=== PATIENT | male | born 1985 | race Caucasian/White ===

== ENCOUNTER → 2020-02-29 15:36 | Outpatient (CLI) | payer OTHER, SELFPAY ==
--- NOTE | 2020-02-29 15:40 | CT_ITS ---
STUDY: CT FACIAL BONES WITHOUT CONTRAST REASON FOR EXAM: Male, 34 years old. PT STATED CHRONIC SINUSITIS, EMRE NORY RADIATION DOSAGE (If Supplied By Facility): CTDIvol = ( 33.06 ) mGy, DLP = ( 858.64 ) mGycm TECHNIQUE: The patient was scanned in a multi detector CT scanner. Sagittal and coronal images were reconstructed. Individualized dose optimization techniques were used for this CT. COMPARISON: None. FINDINGS: Normal soft tissue structures. Normal orbital chand and orbital contents. Normal nasal bones and anterior nasal spine. Normal facial bones. There is no demonstrated fracture. There is mild mucosal thickening in the right maxillary sinus. No evidence of erosions or air-fluid levels. There is however evidence of roots of a maxillary molar within the base of the right maxillary sinus which may be responsible for some of the patient''s pain. There is minimal mucosal thickening in the left maxillary sinus but roots of a maxillary molar also present in the base of the left maxillary sinus. There is no significant mucosal thickening in the ethmoid, sphenoid or frontal sinuses CT/Sinus/Facial Bone IMPRESSION: Mucosal thickening in the maxillary sinuses, right greater than left without evidence of erosions or air-fluid levels. Some of the patient''s pain may be due to the fact that roots of maxillary molars are present in the bases of both maxillary sinuses. Recommend dental consultation Electronically Signed: Jeremias Ramos MD at 8:57 EDT , Service support ,
== END ==
PROVIDERS: Referring Provider Otolaryngology; Visit Provider Otolaryngology
DX: J32.9 Chronic sinusitis, unspecified (principal)
CPT/HCPCS: 70486